=== PATIENT | female | born 1945 | race Caucasian/White ===

== ENCOUNTER 2016-05-18 18:38 | Observation (INO) | payer OTHER ==
[~2016-05-18] VITALS: Ht 165.1 cm; Wt 49.4 kg
[~2016-05-18 18:38] MED LIST: FLUOXETINE HCL10 MG PO; GABAPENTIN300 MG PO; KEPPRA100 MG/1 M PO; LIPITOR80 MG PO; LISINOPRIL2.5 MG PO; OXYCODONE HCL10 MG PO; PROTONIX40 MG PO; ZOFRAN4 MG PO
[2016-05-18 19:01] LABS: HEMATOCRIT 42.4 % (36.0-46.0); MCH 28.8 PG (29.0-34.0); MCHC 32.5 G/DL (30.0-36.0); MCV 88.5 FL (83-99); MEAN PLAT.VOLUME 10.5 uM^3 (9.5-12.4); PLATELET COUNT 314 K/uL (156-360); RBC DIS.WIDTH-CV 14.1 % (11.8-14.6); RED BLOOD COUNT 4.79 M/uL (3.80-5.20); WHITE BLOOD COUNT 7.4 K/uL (4.1-10.2)
[2016-05-18 19:14] LABS: CHLORIDE 105 mEq/L (99-109); POTASSIUM 3.9 mEq/L (3.7-5.4); SODIUM 138 mEq/L (136-147)
[2016-05-18 19:16] LABS: GLUCOSE 133 mg/dL (70-99)
[2016-05-18 19:17] LABS: ANION GAP 9 MEQ/L (2-14)
[2016-05-18 19:20] LABS: GFR ESTIMATE (CALCULATED) > 59 mL/min/; UREA NITROGEN (BUN) 13 mg/dL (9-23)
[2016-05-18 19:24] LABS: TROP-I INTERPRETATION NEGATIVE; TROPONIN-I < 0.01 ng/mL (0.0-0.30)
[2016-05-19 02:24] LABS: TROP-I INTERPRETATION NEGATIVE; TROPONIN-I < 0.01 ng/mL (0.0-0.30)
[2016-05-19 08:31] VITALS: BP 139/67; BP 155/71
[2016-05-19 08:47] LABS: HEMATOCRIT 44.7 % (36.0-46.0); MCHC 32.2 G/DL (30.0-36.0); MCV 90.1 FL (83-99); MEAN PLAT.VOLUME 11.1 uM^3 (9.5-12.4); PLATELET COUNT 313 K/uL (156-360); RBC DIS.WIDTH-CV 14.3 % (11.8-14.6); RBC DIS.WIDTH-SD 46.9 % (39-53); RED BLOOD COUNT 4.96 M/uL (3.80-5.20); WHITE BLOOD COUNT 5.3 K/uL (4.1-10.2)
[2016-05-19 09:16] LABS: TROP-I INTERPRETATION NEGATIVE; TROPONIN-I < 0.01 ng/mL (0.0-0.30)
[2016-05-19 09:38] LABS: ALKALINE PHOSPHATASE 69 IU/L (3-129); ANION GAP 8 MEQ/L (2-14); CHLORIDE 105 MEQ/L (99-109); GFR ESTIMATE (CALCULATED) > 59 mL/min/; HDL CHOLESTEROL 45 MG/DL (Desirable>=50); LDL CHOLESTEROL 76 mg/dL (Desirable<100); NON-HDL CHOLESTEROL 93 mg/dL (Desirable<160); SAMPLE HEMOLYSIS CHECK 0; SAMPLE ICTERIC CHECK 0; SAMPLE LIPEMIA CHECK 0; SODIUM 141 MEQ/L (136-147); TOTAL BILIRUBIN 0.6 MG/DL (0.0-1.0); TOTAL CHOLESTEROL 138 mg/dL (Desirable<200); TRIGLYCERIDES 86 MG/DL (Normal: <150); UREA NITROGEN (BUN) 9 mg/dL (9-23)
[2016-05-19 09:41] LABS: GLUCOSE 84 mg/dL (70-99)
[2016-05-19 13:03] VITALS: BP 162/96
[2016-05-19 15:51] VITALS: BP 166/88
[2016-05-19] MEDS ORDERED: ASPIR-LOW81 MG PO (16:17)
[2016-05-22 08:24] LABS: Estimated Average Glucose 108 mg/dL (70-123); HEMOGLOBIN A1c (GLYCOHEMOGLOB) 5.4 % HGB (Below 5.7)
== END 2016-05-19 17:57 | disposition home or self-care (01) ==
LOC: EME 18:38 → EDOF 22:08 → 5WEST 05-19 08:03
PROVIDERS: Internal Medicine
DX: G45.9 Transient cerebral ischemic attack, unspecified (principal); R94.31 Abnormal electrocardiogram [ECG] [EKG]; I69.320 Aphasia following cerebral infarction; I69.351 Hemiplegia and hemiparesis following cerebral infarction affecting right dominant side; I69.392 Facial weakness following cerebral infarction; I10 Essential (primary) hypertension; E78.5 Hyperlipidemia, unspecified; G40.909 Epilepsy, unspecified, not intractable, without status epilepticus; Z79.891 Long term (current) use of opiate analgesic; Z87.891 Personal history of nicotine dependence
CPT/HCPCS: 70450; 71020; 80048; 80053; 80061; 83036; 84484; 85027; 92610 GN; 93005; 93306; 93880; 99281; 99285; G0378; G8978 GP CJ; G8979 GP CI; G8987 GO CJ; G8988 CI; J1650